=== PATIENT | male | born 1985 | race African-American/Black ===

== ENCOUNTER → 2018-04-30 12:30 | Emergency (ER) | payer OTHER ==
[~2018-04-30 12:30] MED LIST: Acetaminophen TAB* 325 MG PO ONE
--- NOTE | 2018-04-30 15:59 | RAD ---
Indication: Right hand and thumb pain. 2 views of the right hand demonstrates degenerative changes of the first metacarpal phalangeal joint. There is no fracture noted. 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
--- NOTE | 2018-04-30 16:00 | ED ---
Upper Extremity Pain - HPI Summary HPI Summary: 33 year old male presents with right thumb injury today. He states he fell and hyperextended his thumb. He denies any other injury. Admits to some numbness and no tingling. Has full range of motion with pain. Pain greatest over the metacarpal. No wrist pain. Has not taking anything for pain. He is not on eliquis for blood clots. - History of Current Complaint Chief Complaint: EDExtremityUpper Stated Complaint: RT THUMB INJURY Time Seen by Provider: 04/30/18 15:17 - Allergies/Home Medications Allergies/Adverse Reactions: Allergies Allergy/AdvReac Type Severity Reaction Status Date / Time No Known Allergies Allergy Verified 04/30/18 12:40 PMH/Surg Hx/FS Hx/Imm Hx Endocrine/Hematology History: Reports: Hx Anticoagulant Therapy Cardiovascular History: Denies: Hx Hypertension Infectious Disease History: No Infectious Disease History: Denies: Traveled Outside the [place] in Last 30 Days - Family History Known Family History: Negative: Diabetes - Social History Alcohol Use: None Substance Use Type: Reports: None Smoking Status (MU): Current Some Day Smoker Review of Systems Negative: Fever Negative: Chest Pain Negative: Shortness Of Breath Positive: Myalgia - right thumb All Other Systems Reviewed And Are Negative: Yes Physical Exam Triage Information Reviewed: Yes Vital Signs On Initial Exam: Initial Vitals Temp Pulse Resp BP Pulse Ox 97.5 F 53 15 113/72 96 04/30/18 12:34 04/30/18 12:34 04/30/18 12:34 04/30/18 12:34 04/30/18 12:34 Vital Signs Reviewed: Yes Appearance: Positive: Well-Appearing Skin: Positive: Warm, Dry Head/Face: Positive: Normal Head/Face Inspection Eyes: Positive: Normal, Conjunctiva Clear ENT: Positive: Pharynx normal Respiratory/Lung Sounds: Positive: Clear to Auscultation, Breath Sounds Present Cardiovascular: Positive: Normal, RRR Musculoskeletal: Positive: Strength/ROM Intact - right thumb with pain, Edema Right - thumb, Other - nontender snuff box, tenderness metacarpel of thumb, capillary refill<2 secs, Neurological: Positive: Normal Psychiatric: Positive: Normal Diagnostics - Vital Signs Vital Signs Temp Pulse Resp BP Pulse Ox 04/30/18 14:45 98.2 F 60 18 116/71 100 04/30/18 12:34 97.5 F 53 15 113/72 96 - Laboratory Lab Statement: Any lab studies that have been ordered have been reviewed, and results considered in the medical decision making process. 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 fracture. Course/Dx - Course Course Of Treatment: 33 year old male presents with right thumb injury today. He states he fell and hyperextended his thumb. He denies any other injury. Admits to some numbness and no tingling. Has full range of motion with pain. Pain greatest over the metacarpal. No wrist pain. Has not taking anything for pain. He is not on eliquis for blood clots. On exam has tenderness over the thumb metacarpal. Neurovascular intact. X-ray read as normal. We'll give thumb spiace splint. Told to use rice. Told to follow-up with orthopedist if no improvement. Patient understands agrees plan. - Diagnoses Differential Diagnosis/HQI/PQRI: Positive: Fracture (Closed), Strain, Sprain Provider Diagnoses: Injury of right thumb Discharge - Sign-Out/Discharge Documenting (check all that apply): Patient Departure - Discharge Plan Condition: Good Disposition: HOME Patient Education Materials: R.I.C.E. Treatment (ED) Referrals: Kori Espinoza [Primary Care Provider] - Additional Instructions: keep splint on area ice, elevate take tyenlol as needed for pain every 6 hours follow up with ortho if no improvement Return to ED if develop any new or worsening symptoms - Billing Disposition and Condition Condition: GOOD Disposition: Home
[2018-04-30 17:09] VITALS: BP 117/72
== END | disposition home or self-care (01) ==
LOC: ED 12:30
DX: S69.91XA Unspecified injury of right wrist, hand and finger(s), initial encounter (principal); W19.XXXA Unspecified fall, initial encounter; Y92.9 Unspecified place or not applicable; F17.200 Nicotine dependence, unspecified, uncomplicated
CPT/HCPCS: 29130; 99282; A9270-GY